=== PATIENT | female | born 1995 | race Caucasian/White ===

== ENCOUNTER 2017-09-17 18:22 | Emergency (ER) | payer BC ==
[~2017-09-17] VITALS: Ht 167.6 cm; Wt 77.2 kg
[2017-09-17 19:32] LABS: HEMATOCRIT 38.7 % (36.0-46.0); HEMOGLOBIN 13.3 G/DL (11.9-15.5); MCH 30.6 PG (29.0-34.0); MCHC 34.4 G/DL (30.0-36.0); MCV 89.2 FL (83-99); PLATELET COUNT 320 K/uL (156-360); RBC DIS.WIDTH-CV 12.8 % (11.8-14.6); RBC DIS.WIDTH-SD 41.7 % (39-53); RED BLOOD COUNT 4.34 M/uL (3.80-5.20); WHITE BLOOD COUNT 8.3 K/uL (4.1-10.2)
[2017-09-17 19:45] LABS: CHLORIDE 108 mEq/L (99-109); POTASSIUM 3.9 mEq/L (3.7-5.4); SODIUM 141 mEq/L (136-147)
[2017-09-17 19:47] LABS: GLUCOSE 105 mg/dL (70-99)
[2017-09-17 19:51] LABS: CREATININE 0.7 mg/dL (0.6-1.3); GFR ESTIMATE (CALCULATED) > 59 mL/min/
[2017-09-17 19:52] LABS: TROP-I INTERPRETATION NEGATIVE; TROPONIN-I < 0.01 ng/mL (0.0-0.30); UREA NITROGEN (BUN) 8 mg/dL (9-23)
[2017-09-17 22:20] LABS: TROP-I INTERPRETATION NEGATIVE; TROPONIN-I < 0.01 ng/mL (0.0-0.30)
[2017-09-17] MEDS ORDERED: VENTOLIN HFA18 GM IH (22:56)
[2017-09-17] MEDS ORDERED: MOTRIN800 MG PO (22:56)
[2017-09-17 23:13] VITALS: BP 140/84
== END 2017-09-17 23:14 | disposition home or self-care (01) ==
LOC: EME 18:22
PROVIDERS: Nurse Practitioner Family
DX: R07.9 Chest pain, unspecified (principal); R06.02 Shortness of breath
CPT/HCPCS: 71046; 80048; 84484; 85027; 93005; 99281; 99284